=== PATIENT | female | born 1950 ===

== ENCOUNTER 2022-03-06 09:32 | Day surgery (SDC) | payer OTHER | END 2022-03-06 17:45 | disposition home or self-care (01) | LOC: AMB-ENDOS 09:32 | PROVIDERS: ATTEND Colon & Rectal Surgery | DX: D12.3 Benign neoplasm of transverse colon (principal); K64.8 Other hemorrhoids; K59.00 Constipation, unspecified; E11.9 Type 2 diabetes mellitus without complications; Z20.822 Contact with and (suspected) exposure to COVID-19 ==